=== PATIENT | male | born 1985 | race Caucasian/White ===

== ENCOUNTER 2017-08-13 05:57 | Emergency (ER) | payer MEDICAID ==
[~2017-08-13] VITALS: Ht 170.2 cm; Wt 80.0 kg
[2017-08-13 05:59] VITALS: Ht 170.2 cm; Wt 80.0 kg
[2017-08-13] MEDS ORDERED: CLINDAMYCIN 300 MG INJ IV ONE (07:00)
[2017-08-13] MEDS ORDERED: HYDROCODONE/APAP (5/325) TAB PO ONE (07:00)
--- NOTE | 2017-08-13 07:41 | RADRPT ---
PROCEDURE: XR Left Foot. CLINICAL INDICATION: trauma, cellulitis TECHNIQUE: AP, lateral and oblique views of the left foot was obtained. The images were reviewed on a PACS workstation. COMPARISON: None. FINDINGS: The bones of the foot appear intact, with no evidence of fracture, dislocation, or subluxation. The joint spaces are preserved. The bone mineralization is normal. There is ankle and foot soft tissue swelling, severe dorsally. IMPRESSION: Severe soft tissue swelling. No acute osseous abnormality. Physician Vikash Date Time Electronically viewed and signed by Physician Vikash on 08/13/2017 07:41 CS/
[2017-08-13] MEDS ORDERED: CLINDAMYCIN 600 MG/D5W (PMX) 50 ML IVPB SCH (08:00)
--- NOTE | 2017-08-13 08:02 | ERD ---
ER Documentation Chief Complaint Chief Complaint right foot pain s/p skateboard injury 3 days ago, worse w/ edema today HPI This is a 32-year-old male who presents to the emergency department today complaining of right foot pain and redness for the past couple of days. Patient states he was skateboarding and fell off and heard a "crack in his foot ". States he has not taken any medication for the pain. States that he does use IV drugs and last use heroin 6 hours ago. Denies any fevers or chills. ROS All systems reviewed and are negative except as per history of present illness. Medications Home Meds No Active Prescriptions or Reported Meds Allergies Allergies: Coded Allergies: No Known Allergy (Unverified , 12/25/13) PMhx/Soc History of Surgery: No Anesthesia Reaction: No Hx Neurological Disorder: No Hx Respiratory Disorders: No Hx Cardiac Disorders: No Hx Psychiatric Problems: No Hx Miscellaneous Medical Probl: No Hx Alcohol Use: Yes Hx Substance Use: Yes (HEROIN) Hx Tobacco Use: Yes Physical Exam Vitals Vital Signs Date Time Temp Pulse Resp B/P Pulse Ox O2 Delivery O2 Flow Rate FiO2 08/13/17 07:14 100.4 08/13/17 05:59 99.0 113 20 129/69 99 Physical Exam Const: NAD Head: Atraumatic Eyes: Normal Conjunctiva ENT: Normal External Ears, Nose and Mouth. Neck: Full range of motion..~ No meningismus. Resp: Clear to auscultation bilaterally Cardio: Regular rate and rhythm, no murmurs Abd: Soft, non tender, non distended. Normal bowel sounds Skin: No petechiae or rashes MSK: Left foot with no obvious deformity. Moderate to major effusion dorsally with abrasion and soft tissue swelling with erythema and warmth Neur: Awake and alert Psych: Normal Mood and Affect Result Diagram: 08/13/17 0735 08/13/17 0735 Results 24 hrs Laboratory Tests Test 08/13/17 07:35 08/13/17 08:29 White Blood Count 13.410^3/ul Red Blood Count 4.2610^6/ul Hemoglobin 13.3g/dl Hematocrit 38.2% Mean Corpuscular Volume 89.7fl Mean Corpuscular Hemoglobin 31.2pg Mean Corpuscular Hemoglobin Concent 34.8g/dl Red Cell Distribution Width 11.9% Platelet Count 45489^3/UL Mean Platelet Volume 8.7fl Neutrophils % 75.7% Lymphocytes % 11.6% Monocytes % 10.1% Eosinophils % 1.9% Basophils % 0.3% Nucleated Red Blood Cells % 0.0/100WBC Neutrophils # 10.210^3/ul Lymphocytes # 1.610^3/ul Monocytes # 1.410^3/ul Eosinophils # 0.310^3/ul Basophils # 0.010^3/ul Nucleated Red Blood Cells # 0.010^3/ul Sodium Level 137mmol/L Potassium Level 3.9mmol/L Chloride Level 100mmol/L Carbon Dioxide Level 26mmol/L Anion Gap 15 Blood Urea Nitrogen 17mg/dl Creatinine 0.68mg/dl Glucose Level 105mg/dl Calcium Level 8.8mg/dl Total Bilirubin 0.4mg/dl Direct Bilirubin 0.00mg/dl Indirect Bilirubin 0.4mg/dl Aspartate Amino Transf (AST/SGOT) 26IU/L Alanine Aminotransferase (ALT/SGPT) 30IU/L Alkaline Phosphatase 78IU/L C-Reactive Protein 8.4mg/dl Total Protein 6.7g/dl Albumin 3.6g/dl Globulin 3.10g/dl Albumin/Globulin Ratio 1.16 Erythrocyte Sedimentation Rate 18mm/Hr Current Medications Medications (Trade) Dose Ordered Sig/Merrick Route PRN Reason Start Time Stop Time Status Last Admin Dose Admin Clindamycin Phosphate (Cleocin) 600 mg ONCE ONCE IV 08/13/17 07:00 08/13/17 07:01 Cancel Acetaminophen/ Hydrocodone Bitart 1 tab 1 tab ONCE ONCE PO 08/13/17 07:00 08/13/17 07:01 DC 08/13/17 07:40 Clindamycin HCl/ Dextrose 50 ml @ 50 mls/hr ONCE IVPB 08/13/17 08:00 08/13/17 08:59 DC 08/13/17 08:36 Sodium Chloride (NS) 1,000 ml @ 1,000 mls/hr Q1H ONCE IV 08/13/17 10:00 08/13/17 10:59 DC 08/13/17 10:30 DIAGNOSTIC IMAGING REPORT Patient: MOY TOLENTINO : 1985 Age: 32 Sex: M MR #: [id number] DOS: 08/13/17 0000 Ordering MD: DEIDRA WILKERSON PA-C Location: [facility] Room/Bed: PROCEDURE: XR Left Foot. CLINICAL INDICATION: trauma, cellulitis TECHNIQUE: AP, lateral and oblique views of the left foot was obtained. The images were reviewed on a PACS workstation. COMPARISON: None. FINDINGS: The bones of the foot appear intact, with no evidence of fracture, dislocation, or subluxation. The joint spaces are preserved. The bone mineralization is normal. There is ankle and foot soft tissue swelling, severe dorsally. IMPRESSION: Severe soft tissue swelling. No acute osseous abnormality. Physician Vikash Date Time Electronically viewed and signed by James Mariee Physician on 08/13/2017 07: 41 CS/ CC: DEIDRA WILKERSON PA-C Procedures/MDM This a 32-year-old male who presents to the emergency department today complaining of right foot pain and swelling and redness after sustaining an injury a couple of days ago while reporting. Dr. Rose did see and evaluate the patient recommended laboratory workup as well as imaging Laboratory workup elevated white blood cell count of 13.4. His hemoglobin is mildly decreased. ESR mildly elevated at 18 CRP dated 8.4. Foot x ray shows severe soft tissue swelling. There is no acute osseous abnormality. Bones of the foot appear intact with no evidence of fracture, dislocation or subluxation. Patient was given IV clindamycin IV fluids here in the emergency department. He will given Earle for pain patient developed a fever here of 100.4 here in the emergency department was therefore given Motrin at the [facility] given Earle. Symptoms Is at this time is consistent with cellulitis and sepsis. Patient is an IV drug abuser and given his laboratory workup as well as patient's physical exam patient will be admitted to the hospital. Any further orders placed will be completed by Dr. Rose or the admitting physician. Departure Diagnosis: Primary Impression: Cellulitis of foot Condition: Fair DEIDRA WILKERSON PA-C Aug 13, 2017 08:02
[2017-08-13 08:24] LABS: BASOPHILS % 0.3 % (0.0-2.0); EOSINOPHILS # 0.3 10^3/ul (0.0-0.5); EOSINOPHILS % 1.9 % (0.0-7.0); HEMATOCRIT 38.2 % (42.0-52.0); HEMOGLOBIN 13.3 g/dl (14.0-18.0); LYMPHOCYTES # 1.6 10^3/ul (0.8-2.9); LYMPHOCYTES % 11.6 % (15.0-51.0); MEAN CORPUSCULAR HEMOGLOBIN 31.2 pg (29.0-33.0); MEAN CORPUSCULAR HGB CONC 34.8 g/dl (32.0-37.0); MEAN CORPUSCULAR VOLUME 89.7 fl (82.0-101.0); MEAN PLATELET VOLUME 8.7 fl (7.4-10.4); MONOCYTE # 1.4 10^3/ul (0.3-0.9); MONOCYTES % 10.1 % (0.0-11.0); NEUTROPHIL # 10.2 10^3/ul (1.6-7.5); NEUTROPHILS % 75.7 % (39.0-77.0); PLATELET COUNT 387 10^3/UL (140-415); RED BLOOD COUNT 4.26 10^6/ul (4.70-6.10); RED CELL DISTRIBUTION WIDTH 11.9 % (11.5-14.5); WHITE BLOOD COUNT 13.4 10^3/ul (4.8-10.8)
[2017-08-13 09:13] LABS: ALBUMIN 3.6 g/dl (3.3-4.9); ALBUMIN/GLOBULIN RATIO 1.16; BILIRUBIN,INDIRECT 0.4 mg/dl (0-1.1); BILIRUBIN,TOTAL 0.4 mg/dl (0.2-1.3); C-REACTIVE PROTEIN 8.4 mg/dl (0.0-0.9); CALCIUM 8.8 mg/dl (8.4-10.2); CREATININE 0.68 mg/dl (0.61-1.24); POTASSIUM 3.9 mmol/L (3.5-5.1); TOTAL PROTEIN 6.7 g/dl (6.1-8.1)
[2017-08-13] MEDS ORDERED: SOD CHLORIDE 0.9% 1,000 ML IV ONE ×2 (10:00→13:00)
[2017-08-13] MEDS ORDERED: IBUPROFEN 800 MG TAB PO ONE (11:30)
--- NOTE | 2017-08-13 12:40 | EN ---
Date/Time of Note Date/Time of Note DATE: 08/13/17 TIME: 12:39 ER Progress Note Patient was seen again and evaluated by Dr. Rose and the patient was offered admission however the patient requested to go home. It was recommended that an incision and drainage be performed on the patient and the patient has agreed to proceed. Patient was given another liter and a half of fluids. Large amount of purulent drainage was drained from the area patient was counseled extensively on his IV drug abuse. Patient indicated that he was on Suboxone and being seen at [facility] however he had used heroin 6 hours prior to arrival here in the emergency department. Abscess Incision and Drainage with irrigation by me: Location: left foot Anesthesia: [Local 1% Lidocaine] 5 cc Technique: [11 blade scalpel used to make a 1cm incision in the abscess. Irrigated. Disrupted loculations w/ instrumentation] Packin/2 in iodoform Complications: [Neurovascularly intact post procedure] Risks and benefits of the procedure were explained to the patient and they agreed to proceed. Area was prepped in the usual sterile fashion. Patient tolerated the procedure well. There were no complications. Patient's skin symptoms have stabilized while they have been evaluated in the department and are appropriate for outpatient care and work up. Exam and w/u not consistent w/ sepsis, deep space infection, or foreign body. 48 hour wound check. Scar minimization instructions given. Patient was instructed to keep area clean and dry. He was instructed in a wound check in 48 hours. He will get a prescription for Keflex and Bactrim as Naprosyn and Tylenol for home DEIDRA WILKERSON PA-C Aug 13, 2017 12:40
[2017-08-13] MEDS ORDERED: LIDOCAINE 1% (MDV) 20 ML INJ SC ONE (13:00)
[2017-08-13] MEDS ORDERED: SOD CHLORIDE 0.9% 500 ML IV ONE (13:00)
[2017-08-13] MEDS ORDERED: IBUP800T25 PO (15:01)
[2017-08-13] MEDS ORDERED: SULF1TAB31 PO (15:01)
[2017-08-13] MEDS ORDERED: CEPH-443 PO (15:01)
[2017-08-13] MEDS ORDERED: ACET500C5 PO (15:01)
[2017-08-13 15:22] VITALS: BP 108/55; PULSE 82; RESP 16; TEMP 98.2
--- NOTE | 2017-08-13 19:52 | EN ---
Date/Time of Note Date/Time of Note DATE: 08/13/17 TIME: 19:50 ER Progress Note S: I evaluated this patient in conjunction with the PA. Briefly, this is a 32- year-old male with a past medical history of polysubstance abuse including IV drug use. The patient is on Suboxone, but he does continue to use IV narcotic medications, such as heroin. He last used approximately 6 hours prior to arrival to the emergency department. He presents today with swelling, erythema , induration and a pocket of fluctuance to the right foot. He came to the emergency department secondary to increasing pain. The patient denies feeling sick recently. The patient denies fever or chills. The patient has had no headache or vision changes. The patient does not endorse neck or back pain. The patient denies lightheadedness or dizziness. The patient has had no chest pain or shortness of breath or trouble breathing. The patient denies nausea or vomiting. The patient denies abdominal pain or changes to bowel movements or urination. The patient has had no focal deficits. The patient has had no weakness or numbness or tingling to the face or extremities. O: Vital signs reviewed, the patient did have an elevated temperature in the emergency department. Const: No apparent distress, well-developed, well-nourished Head: Normocephalic, Atraumatic Eyes: Normal Conjunctiva. ENT: Normal External Ears, Nose and Mouth. Neck: Full range of motion. No meningismus. Resp: Clear to auscultation bilaterally, No wheezes, rales or rhonchi Cardio: Regular rhythm. +Tachycardia. No murmurs, rubs or gallops Abd: Soft, non tender, non distended. Normal bowel sounds Skin: No petechiae. Areas of erythema and induration to his extremities, most prominently in his left AC and his right foot with a pocket of fluctuance to the right foot Ext: No cyanosis, or edema Neur: Awake and alert, oriented 4. Cranial nerves intact. No facial droop. Normal strength, sensation and coordination. A: Cellulitis, Abscess P: I did instruct the PA to obtain an x-ray of the foot in addition to getting blood work. The x-ray did show soft tissue swelling but no signs of osteomyelitis. The patient did have a mild leukocytosis in addition to a mild elevation of his ESR and CRP. However, they are not elevated to the point that I am highly suspicious of osteomyelitis. The PA did perform an incision and drainage of the foot abscess under my supervision without complication. In speaking with the patient, the PA and I did discuss the option of admission. I have concern of the patient's compliance, but he declined admission and preferred a trial or outpatient therapy. He understands the risks related to noncompliance of his medications. He will be sent home with prescriptions of Keflex and Bactrim. He was given a dose of clindamycin in the emergency department. The patient will follow up with his primary care physician. He is also welcome to return to the emergency department in 1-2 days for reevaluation of his wounds. JUANA CHURCH MD Aug 13, 2017 19:52
== END 2017-08-13 15:24 | disposition home or self-care (01) ==
LOC: FTE 05:57
DX: L03.115 Cellulitis of right lower limb (principal); Z87.891 Personal history of nicotine dependence
CPT/HCPCS: 36415; 73630; 80053; 85025; 85651; 86140; 87040; 96374; J7030; J7040; Z7502; Z7610